=== PATIENT | male | born 1955 | race Hispanic/Latino ===

== ENCOUNTER → 2021-11-16 | Outpatient (CLI) | payer MEDICARE | LOC: CT 12:57 | PROVIDERS: ATTEND Internal Medicine | DX: S83.91XA Sprain of unspecified site of right knee, initial encounter (principal); S09.90XA Unspecified injury of head, initial encounter | CPT/HCPCS: 70450 ==

== ENCOUNTER → 2021-12-12 | Outpatient (CLI) | payer MEDICARE | LOC: MRI 09:57 | PROVIDERS: ATTEND Internal Medicine | DX: G96.08 Other cranial cerebrospinal fluid leak (principal) | CPT/HCPCS: 70551 ==

== ENCOUNTER 2022-01-23 14:55 | Outpatient (RCR) | payer MEDICARE | END 2022-01-26 | LOC: PT 14:55 | PROVIDERS: ATTEND Internal Medicine | DX: S06.34 Traumatic hemorrhage of right cerebrum (principal); M62.81 Muscle weakness (generalized) ==

== ENCOUNTER 2022-01-30 08:41 | Outpatient (RCR) | payer MEDICARE | END 2022-02-26 | LOC: PT 08:41 | PROVIDERS: ATTEND Internal Medicine | DX: S06.34 Traumatic hemorrhage of right cerebrum (principal); M62.81 Muscle weakness (generalized) ==

== ENCOUNTER → 2022-07-19 | Outpatient (CLI) | payer MEDICARE | LOC: RAD 13:04 | PROVIDERS: ATTEND Internal Medicine | DX: T86.40 Unspecified complication of liver transplant (principal); R10.31 Right lower quadrant pain | CPT/HCPCS: 74018 ==